=== PATIENT | female | born 1990 | race African-American/Black ===

== ENCOUNTER 2019-10-06 15:50 | Emergency (ER) | payer MEDICAID ==
[~2019-10-06] VITALS: Ht 162.6 cm; Wt 54.0 kg
[2019-10-06 16:08] VITALS: BP 151/88
== END 2019-10-06 21:06 | disposition left against medical advice (07) ==
LOC: ER 15:50
DX: F10.129 Alcohol abuse with intoxication, unspecified (principal); Z53.21 Procedure and treatment not carried out due to patient leaving prior to being seen by health care provider